=== PATIENT | female | born 1935 | race Hispanic/Latino ===

== ENCOUNTER 2021-01-15 11:05 | Emergency (ER) | payer OTHER ==
[2021-01-15] MEDS ORDERED: NA CHLORIDE 0.9% 500 ML ONE (15:20)
[2021-01-15 15:24] LABS: Absolute Lymphocytes (CBC) 1.6 K/uL (0.7-4.9); Basophils % 0.4 % (0-1.3); Hematocrit 38.8 % (36.0-45.0); Lymphocytes % 20.4 % (15.3-44.8); MPV 7.5 fL (7.6-11.3)
--- NOTE | 2021-01-15 16:01 | RAD REPORT ---
EXAM DESCRIPTION: Janeth Single View01/15/2021 3:28 pm CLINICAL HISTORY: Cough COMPARISON: none FINDINGS: Mild patchy opacities are present within the right lung. Left lung appears clear of acute infiltrate. The heart is normal size IMPRESSION: Mild patchy opacities within the right lung probably pneumonia
[2021-01-15 16:36] LABS: Urine Blood 2+ (Negative); Urine Glucose Negative (Negative); Urine Protein Negative (Negative); Urine pH 5.5 (5.0-7.0)
[2021-01-15] MEDS ORDERED: AZITHROMYCIN 250 MG TAB ONE (16:45)
[2021-01-15] MEDS ORDERED: NITROFURAN MACRO 100 MG CAP PO ONE (17:03)
[2021-01-15 17:54] LABS: Urine Bacteria LOADED /HPF (<20); Urine RBC <5 /HPF (NONE SEEN)
[2021-01-15 18:47] LABS: Potassium 2.9 mmol/L (3.5-5.1)
--- NOTE | 2021-01-15 18:51 | ER ---
Nurse's Notes [facility] Name: Thi Grimes Age: 85 yrs Sex: Female : 1935 Arrival Date: 01/15/2021 Time: 11:06 Bed 15 Private MD: Diagnosis: Pneumonia, unspecified organism;Coronavirus infection, unspecified;UTI/ Urinary tract infection, site not specified;Hypokalemia Presentation: 01/15 11:26 Chief complaint: Malaise, cough, congestion, sore throat, fever, and mild SOB x 2-3 hb days. TMAX 102. Sent by Dr. Ziegler for poss dehydration. Coronavirus screen: Client presents with at least one sign or symptom that may indicate coronavirus-19. Standard/surgical mask placed on the client. Provider contacted for isolation considerations. Ebola Screen: No symptoms or risks identified at this time. Risk Assessment: Do you want to hurt yourself or someone else? Patient reports no desire to harm self or others. Onset of symptoms was January 13, 2021. 11:26 Method Of Arrival: Ambulatory hb 11:26 Acuity: WEI 3 hb Historical: - Allergies: 11:28 PENICILLINS; hb 11:28 Codeine; hb 11:28 Aspirin; hb - Immunization history:: Adult Immunizations. - Social history:: Smoking status: . Screenin:43 Abuse screen: Denies threats or abuse. Nutritional screening: No deficits noted. tw2 Tuberculosis screening: No symptoms or risk factors identified. Fall Risk Secondary diagnosis (15 points) impaired mobility. Assessment: 14:50 Reassessment: provider at bedside at this time. tw2 15:07 General: Appears in no apparent distress. slender, well groomed, Behavior is calm, tw2 cooperative, appropriate for age. Pain: Denies pain. Neuro: Level of Consciousness is awake, alert, obeys commands, Oriented to person, place, time, situation. Cardiovascular: Patient's skin is warm and dry. Respiratory: Airway is patent Respiratory effort is even, unlabored, Respiratory pattern is regular, symmetrical. Respiratory: Reports shortness of breath at rest cough that is non-productive. GI: No signs and/or symptoms were reported involving the gastrointestinal system. Abdomen is flat. : No signs and/or symptoms were reported regarding the genitourinary system. EENT: Reports nasal congestion nasal discharge. Derm: No signs and/or symptoms reported regarding the dermatologic system. Musculoskeletal: Range of motion: intact in all extremities. 16:38 Reassessment: Patient appears in no apparent distress at this time. No changes from tw2 previously documented assessment. Patient and/or family updated on plan of care and expected duration. Pain level reassessed. Patient is alert, oriented x 3, equal unlabored respirations, skin warm/dry/pink. 17:34 Reassessment: Patient appears in no apparent distress at this time. No changes from tw2 previously documented assessment. Patient and/or family updated on plan of care and expected duration. Pain level reassessed. Patient is alert, oriented x 3, equal unlabored respirations, skin warm/dry/pink. 19:00 Reassessment: Patient appears in no apparent distress at this time. No changes from tw2 previously documented assessment. Patient and/or family updated on plan of care and expected duration. Pain level reassessed. Patient is alert, oriented x 3, equal unlabored respirations, skin warm/dry/pink. Vital Signs: 11:26 BP 125 / 57; Pulse 110; Resp 16; Temp 98.9(TE); Pulse Ox 96% on R/A; Pain 3/10; hb 15:25 BP 125 / 61; Pulse 91; Resp 17; Pulse Ox 98% on R/A; tw2 16:37 BP 136 / 72; Pulse 90; Resp 17; Pulse Ox 97% on R/A; tw2 17:34 BP 128 / 64; Pulse 89; Resp 17; Pulse Ox 97% on R/A; tw2 19:00 BP 122 / 69; Pulse 89; Resp 18; Pulse Ox 96% on R/A; tw2 ED Course: 11:06 Patient arrived in ED. rg4 11:28 Triage completed. hb 11:28 Arm band placed on. hb 14:28 Bed in low position. Call light in reach. Adult w/ patient. contact lens cutter on. Pulse tw2 ox on. NIBP on. 14:29 Blanca Yarbrough, RN is Primary Nurse. ap3 14:35 Ramona Cox, ALEKSANDR is Primary Nurse. tw2 14:49 Michelle Kohli FNP-C is [facility]. kb 14:49 Wei Kulkarni MD is Attending Physician. kb 15:07 Inserted saline lock: 20 gauge in right antecubital area, using aseptic technique. tw2 Blood collected. 15:14 Flu Sent. tw2 15:27 Chest Single View XRAY In Process Unspecified. EDMS 16:37 Urine Microscopic Only Sent. tw2 17:33 Awaiting lab results. tw2 18:47 Notified Nurse Practitioner and/or Physician Office Rental Clerk of a critical lab result(s), K tw2 2.9. 19:12 No provider procedures requiring assistance completed. IV discontinued, intact, tw2 bleeding controlled, No redness/swelling at site. Pressure dressing applied. Administered Medications: 15:07 Drug: NS 0.9% 500 ml Route: IV; Rate: bolus; Site: right antecubital; tw2 16:00 Follow up: Response: No adverse reaction; IV Status: Completed infusion; IV Intake: tw2 500ml 16:37 Drug: Zithromax (azithromycin) 500 mg Route: PO; tw2 18:50 Follow up: Response: No adverse reaction tw2 16:44 Drug: Macrobid (nitrofurantoin) 100 mg {Note: with sandwich.} Route: PO; tw2 18:50 Follow up: Response: No adverse reaction tw2 19:00 Drug: Potassium Effervescent Tablet 50 mEq Route: PO; tw2 19:08 Follow up: Response: No adverse reaction tw2 Intake: 16:00 IV: 500ml; Total: 500ml. tw2 Outcome: 18:50 Discharge ordered by . kb 19:12 Discharged to home ambulatory, with family. tw2 19:12 Condition: stable 19:12 Discharge instructions given to patient, family, Instructed on discharge instructions, follow up and referral plans. medication usage, Demonstrated understanding of instructions, follow-up care, medications, Prescriptions given X 2. 19:13 Patient left the ED. tw2 Signatures: Dispatcher [employer] EDMichelle Mckinney, OLIVER FELDMAN-Rachael Hathaway RN RN Ramona Cox RN RN tw2 Terri Lepe4 Blanca Yarbrough RN RN ap3 Corrections: (The following items were deleted from the chart) 11:28 11:28 Allergies: No Known Allergies; hb hb 14:44 14:32 BP 112 / 70; Pulse 68bpm; Resp 18bpm; Pulse Ox 99% RA; ap3 ap3 14:44 14:33 General: Appears in no apparent distress. comfortable, Behavior is talkative. ap3 ap3 : 14:33 Pain: Denies pain. ap3 ap3 : 14:33 Neuro: Level of Consciousness is awake, alert, obeys commands, Oriented to ap3 person, place, time, situation, Deckhand are Moves all extremities. Gait is steady, Speech is normal, ap3 : 14:33 Cardiovascular: Denies chest pain, Capillary refill < 3 seconds Patient's skin is ap3 warm and dry. ap3 : 14:33 Respiratory: Airway is patent Respiratory effort is even, unlabored, Respiratory ap3 pattern is regular, symmetrical, ap3 : 14:33 GI: No signs and/or symptoms were reported involving the gastrointestinal system. ap3 ap3 : 14:33 : ap3 ap3 14:33 : ap3 ap3
--- NOTE | 2021-01-15 18:51 | EDPHYS ---
Physician Documentation [facility] Name: Thi Grimes Age: 85 yrs Sex: Female : 1935 Arrival Date: 01/15/2021 Time: 11:06 Bed 15 Private MD: ED Physician Wei Kulkarni HPI: 01/16 00:22 This 85 yrs old Female presents to ER via Ambulatory with complaints of kb Palpitations, Dehydration. 01/15 18:46 Daughter reports patient went to PCP today for cough, congestion, fever, decreased kb appetite and fatigue for 3 days. PCP sent patient to ER for concerns of dehydration due to elevated heart rate.. 01/16 00:22 The patient or guardian reports cough, that is intermittent, described as moderate, kb with no sputum, flu symptoms, low-grade fever, myalgias, no appetite. Onset: The symptoms/episode began/occurred 3 day(s) ago. Severity of symptoms: At their worst the symptoms were moderate, in the emergency department the symptoms are unchanged. Modifying factors: The symptoms are alleviated by nothing, the symptoms are aggravated by nothing. Associated signs and symptoms: Pertinent positives: fever, rhinorrhea, Pertinent negatives: chest pain, diarrhea, ear ache. The patient has not experienced similar symptoms in the past. The patient has been recently seen by a physician:. Historical: - Allergies: 01/15 11:28 PENICILLINS; hb 11:28 Codeine; hb 11:28 Aspirin; hb - Immunization history:: Adult Immunizations. - Social history:: Smoking status: . ROS: 01/16 00:23 Abdomen/GI: Negative for abdominal pain, nausea, vomiting, diarrhea, and constipation. kb Constitutional: Positive for body aches, chills, fatigue, fever, malaise. Respiratory: Positive for cough, Negative for dyspnea on exertion, hemoptysis, orthopnea, pleurisy, shortness of breath, sputum production, wheezing. All other systems are negative. Exam: 00:24 Constitutional: This is a well developed, well nourished patient who is awake, alert, kb and in no acute distress. Head/Face: Normocephalic, atraumatic. ENT: Moist Mucous membranes Cardiovascular: Regular rate and rhythm with a normal S1 and S2. No gallops, murmurs, or rubs. No pulse deficits. Respiratory: Respirations even and unlabored. No increased work of breathing, no retractions or nasal flaring. Abdomen/GI: Soft, non-tender. No distention Skin: Warm, dry with normal turgor. Normal color. MS/ Extremity: Pulses equal, no cyanosis. Neurovascular intact. Full, normal range of motion. Neuro: Awake and alert, GCS 15, oriented to person, place, time, and situation. Moves all extremities. Normal gait. Psych: Awake, alert, with orientation to person, place and time. Behavior, mood, and affect are within normal limits. Vital Signs: 01/15 11:26 BP 125 / 57; Pulse 110; Resp 16; Temp 98.9(TE); Pulse Ox 96% on R/A; Pain 3/10; hb 15:25 BP 125 / 61; Pulse 91; Resp 17; Pulse Ox 98% on R/A; tw2 16:37 BP 136 / 72; Pulse 90; Resp 17; Pulse Ox 97% on R/A; tw2 17:34 BP 128 / 64; Pulse 89; Resp 17; Pulse Ox 97% on R/A; tw2 19:00 BP 122 / 69; Pulse 89; Resp 18; Pulse Ox 96% on R/A; tw2 MDM: 14:49 Patient medically screened. 01/16 00:23 Data reviewed: vital signs, nurses notes. Data interpreted: Pulse oximetry: on room air kb is 96 %. Interpretation: normal. Counseling: I had a detailed discussion with the patient and/or guardian regarding: the historical points, exam findings, and any diagnostic results supporting the discharge/admit diagnosis, lab results, radiology results, the need for outpatient follow up, a family practitioner, to return to the emergency department if symptoms worsen or persist or if there are any questions or concerns that arise at home. 01/15 14:49 Order name: COVID-19 : Document "Date of Symptom Onset" if Symptomatic. 01/15 14:49 Order name: Flu kb 01/15 14:50 Order name: Influenza Screen (A ; Complete Time: 15:52 EDMS 01/15 14:55 Order name: CBC with Diff; Complete Time: 15:31 kb 01/15 14:55 Order name: Basic Metabolic Panel; Complete Time: 18:48 kb 01/15 16:09 Order name: Blood Culture Adult (2) 01/15 16:09 Order name: Lactate 01/15 16:09 Order name: Procalcitonin 01/15 16:10 Order name: Blood Culture EDNY 01/15 16:18 Order name: SARS-COV-2 RT PCR; Complete Time: 16:20 EDNY 01/15 16:35 Order name: Urine Microscopic Only; Complete Time: 17:54 ss 01/15 14:55 Order name: Urine Dipstick-Ancillary (obtain specimen); Complete Time: 16:36 01/15 14:55 Order name: IV Start; Complete Time: 15:14 01/15 14:55 Order name: Chest Single View XRAY; Complete Time: 16:08 01/15 16:35 Order name: Urine Dipstick-Ancillary; Complete Time: 16:41 EDMS 01/15 17:55 Order name: Urine Culture EDMS Administered Medications: 01/15 15:07 Drug: NS 0.9% 500 ml Route: IV; Rate: bolus; Site: right antecubital; tw2 16:00 Follow up: Response: No adverse reaction; IV Status: Completed infusion; IV Intake: tw2 500ml 16:37 Drug: Zithromax (azithromycin) 500 mg Route: PO; tw2 18:50 Follow up: Response: No adverse reaction tw2 16:44 Drug: Macrobid (nitrofurantoin) 100 mg {Note: with sandwich.} Route: PO; tw2 18:50 Follow up: Response: No adverse reaction tw2 19:00 Drug: Potassium Effervescent Tablet 50 mEq Route: PO; tw2 19:08 Follow up: Response: No adverse reaction tw2 Disposition: 01/16 09:14 Co-signature as Attending Physician, Wei Kulkarni MD I agree with the assessment and anaya plan of care. Disposition Summary: 01/15/21 18:50 Discharge Ordered Location: Home kb Condition: Stable kb Diagnosis - Pneumonia, unspecified organism kb - Coronavirus infection, unspecified kb - UTI/ Urinary tract infection, site not specified kb - Hypokalemia kb Followup: kb - With: Emergency Department - When: As needed - Reason: Worsening of condition Followup: kb - With: Private Physician - When: 2 - 3 days - Reason: Recheck today's complaints, Continuance of care, Re-evaluation by your physician Discharge Instructions: - Discharge Summary Sheet kb - Urinary Tract Infection, Adult, [id number] kb - Hypokalemia kb - COVID-19 kb Forms: - Medication Reconciliation Form kb - Thank You Letter kb - Antibiotic Education kb - Prescription Opioid Use kb Prescriptions: - Macrobid 100 mg Oral Capsule - take 1 capsule by ORAL route every 12 hours for 10 days; 20 capsule; Refills: kb 0, Product Selection Permitted - Zithromax 500 mg Oral Tablet - take 1 tablet by ORAL route once daily for 5 days; 5 tablet; Refills: 0, kb Product Selection Permitted Signatures: Dispatcher [employer] EDMS Michlele Kohli, DOG HANDLER OR TRAINER-C FRANCIA-Wei Camarillo MD MD cha Baxter, Heather, RN RN Ramona Cox RN RN tw2 Corrections: (The following items were deleted from the chart) 01/15 11:28 11:28 Allergies: No Known Allergies; hb hb 15:31 14:50 CORONAVIRUS ordered. EDMS EDMS 16:20 16:10 Lactate ordered. EDMS EDMS 16:21 16:10 Procalcitonin ordered. EDMS EDMS
[2021-01-15] MEDS ORDERED: POTASSIUM 25 MEQ EFFERV TAB ONE (19:15)
[2021-01-15 19:17] VITALS: TEMP 98.9
[2021-01-15 19:23] VITALS: BP 122/69; O2SAT 96
== END 2021-01-15 19:13 | disposition home or self-care (01) ==
LOC: ER 11:05
DX: U07.1 COVID-19 (principal); J18.9 Pneumonia, unspecified organism; N39.0 Urinary tract infection, site not specified; E87.6 Hypokalemia; Z88.0 Allergy status to penicillin; Z88.5 Allergy status to narcotic agent; Z88.6 Allergy status to analgesic agent
CPT/HCPCS: 87040 ×2; 87088; 85025; 87086; 80048; 36415; 87804 ×2; 71045; 96360; 99284; U0003; J7040; 81003; 81015; 87077; 87186

== ENCOUNTER 2025-03-31 23:24 | Inpatient (IN) | payer OTHER ==
[2025-03-31] MEDS ORDERED: ONDANSETRON 4 MG/2 ML VIAL ONE (23:58)
[2025-03-31] MEDS ORDERED: NA CHLORIDE 0.9% 1,000 ML ONE (23:58)
[2025-03-31] MEDS ORDERED: MORPHINE 2 MG/ML SYR ONE (23:58)
[2025-03-31] MEDS ORDERED: NA CHLORIDE 0.9% 500 ML ONE (23:58)
[2025-04-01 00:01] LABS: Absolute Lymphocytes (CBC) 2.8 K/uL (0.7-4.9); Hematocrit 36.2 % (36.0-45.0); Hemoglobin 11.8 g/dL (12.0-15.0); MCH 29.2 pg (27.0-35.0); MCHC 32.6 g/dL (32.0-36.0); MCV 89.4 fL (80-100); MPV 7.6 fL (7.6-11.3); Nucleated RBC Absolute Count 0.0 (0-0); Nucleated Red Blood Cells % 0.0 % (0-0); RBC Red Blood Cell Count 4.05 M/uL (3.86-4.86); White Blood Count 16.20 thou/uL (4.3-10.9)
[2025-04-01 00:07] LABS: PT Prothrombin Time 13.8 SECONDS (10-13.0); Protime INR 1.23
[2025-04-01 00:25] LABS: ALT/SGPT 15 U/L (13-56); AST/SGOT 13 U/L (15-37); Albumin 2.8 g/dL (3.4-5.0); Albumin/Globulin Ratio 0.8 (1.1-1.8); Alkaline Phosphatase 71 U/L (45-117); Anion Gap 8.7 mEq/L (5.0-15.0); BUN Blood Urea Nitrogen 10 mg/dL (7-18); Globulin 3.6 g/dL (2.3-3.5); Glucose Level 145 mg/dL (74-106); Lipase 26 U/L (13-75); Magnesium 2.3 mg/dL (1.6-2.4); NT PRO-BNP 274 pg/mL (<450); Potassium 2.7 mEq/L (3.5-5.1); Troponin High Sensitivity 6.2 pg/mL (<58.9)
[2025-04-01] MEDS ORDERED: METOCLOPRAMIDE 10 MG/2mL INJ ONE (00:28)
[2025-04-01 00:30] LABS: Bilirubin Indirect, Calculated 0.3 mg/dL (0.2-0.8)
[2025-04-01] MEDS ORDERED: MORPHINE 2 MG/ML SYR ONE (00:34)
--- NOTE | 2025-04-01 02:05 | RAD REPORT ---
EXAM: CT Chest, Abdomen and Pelvis With Intravenous Contrast CLINICAL HISTORY: The patient is 89 years old and is Female; abd pain TECHNIQUE: Axial computed tomography images of the chest, abdomen and pelvis with intravenous contrast. Sagi ttal and coronal reformatted images were created and reviewed. This CT exam was performed using one or more of the following dose reduction techniques: automated exposure control, adjustment of t he mA and/or kV according to patient size, and/or use of iterative reconstruction technique. COMPARISON: No relevant prior studies available. FINDINGS: CHEST: LUNGS AND PLEURAL SPACES: Foci of atelectasis/scarring within the right upper lobe and bilateral lower lobes is noted. There is no lobar consolidation. There is no effusion or pneumothorax. HEART: No cardiomegaly. No pericardial effusion. MEDIASTINUM: Extensive esophageal wall thickening/edema is present. ABDOMEN: LIVER: Intrahepatic and extrahepatic biliary dilatation is present. The liver is otherwise homo geneous. GALLBLADDER AND BILE DUCTS: Surgical clips are present in the right upper quadrant, consistent wi th previous cholecystectomy. PANCREAS: No ductal dilation. No mass. SPLEEN: Unremarkable. ADRENALS: Unremarkable. No mass. KIDNEYS AND URETERS: Unremarkable. The kidneys enhance symmetrically. No obstructing renal or ure teral calculus is seen. No hydronephrosis or hydroureter. No perinephric fluid or stranding. STOMACH AND BOWEL: The stomach is distended with food contents and air. The small bowel is normal in caliber. A moderate amount of stool is present throughout the colon. Scattered colonic diverticula are noted without surrounding inflammation. There is no evidence of obstruction. PELVIS: APPENDIX: No findings to suggest acute appendicitis. BLADDER: Bladder wall thickening and enhancement is noted. The bladder is moderately distended. REPRODUCTIVE: Unremarkable as visualized. CHEST, ABDOMEN and PELVIS: INTRAPERITONEAL SPACE: Unremarkable. No significant fluid collection. No free air. BONES/JOINTS: The bones are osteopenic. Minimal degenerative change specifically at L5-S1 with en dplate sclerosis and intervertebral disc space narrowing is noted. There is no acute fracture. SOFT TISSUES: The soft tissues are normal. VASCULATURE: Atherosclerosis of the vasculature is present. The vessels are normal in caliber. No aortic aneurysm. LYMPH NODES: Unremarkable. No enlarged lymph nodes. IMPRESSION: 1. Extensive esophageal wall thickening concerning for esophagitis. A discrete mass is not seen. Ho wejeanine, consider direct visualization. 2. Colonic diverticulosis. 3. Mild enhancement and thickening of the bladder wall which may be secondary to cystitis. 4. Biliary dilatation. This may be related to postcholecystectomy state. However, if clinically ind icated, ultrasound and/or MRCP could be performed for further evaluation. Electronically signed by: Rochelle Osorio MD 04/01/2025 01:25 AM CDT RP Due to temporary technical issues with the PACS/[employer] reporting system, reports are being herson d by the in-house radiologist without review as a courtesy to ensure prompt reporting the interpreting radiologist is fully responsible for the content of the report. Transcribed Date/Time: 04/01/2025 2:05 AM
[2025-04-01] MEDS ORDERED: CEFTRIAXONE 1000 MG/VIAL ONE (03:12)
[2025-04-01] MEDS ORDERED: KCL 20 MEQ/100 mL IVPB 100 ML IV ONE (03:13)
[2025-04-01] MEDS ORDERED: PANTOPRAZOLE 40 MG INJ ONE ×2 (03:13→09:07)
[2025-04-01] MEDS ORDERED: NA CHLORIDE 0.9% 0 ML ONE ×2 (03:13)
--- NOTE | 2025-04-01 06:07 | ER ---
Nurse's Notes [facility] Name: Thi Grimes Age: 89 yrs Sex: Female : 1935 Arrival Date: 03/31/2025 Time: 23:24 Bed 5 Private MD: Diagnosis: Intractable vomiting, acute moderate to severe esophagitis;Acute hypokalemia secondary to GI losses Presentation: 03/31 23:43 Chief complaint: Patient states: CP/Burning, N/V and SOB X2 days. Coronavirus screen: lg3 Client denies travel out of the [place] in the last 14 days. At this time, the client does not indicate any symptoms associated with coronavirus-19. Ebola Screen: No symptoms or risks identified at this time. Initial Sepsis Screen: Does the patient meet any 2 criteria? No. Patient's initial sepsis screen is negative. Does the patient have a suspected source of infection? No. Patient's initial sepsis screen is negative. Risk Assessment: Do you want to hurt yourself or someone else? Patient reports no desire to harm self or others. Onset of symptoms was March 29, 2025. 23:43 Method Of Arrival: Wheelchair lg3 23:43 Acuity: WEI 3 lg3 Triage Assessment: 23:45 General: Appears in no apparent distress. uncomfortable, Behavior is calm, cooperative. lg3 Pain: Complains of pain in chest Quality of pain is described as burning. EENT: No deficits noted. No signs and/or symptoms were reported regarding the EENT system. Neuro: No deficits noted. Mitchell Agitation-Sedation Scale (RASS): 0 - Alert and Calm Level of Consciousness is awake, alert, obeys commands, Oriented to person, place, time, situation. Cardiovascular: Reports chest pain, shortness of breath, Capillary refill < 3 seconds Clubbing of nail beds is absent JVD is absent Patient's skin is warm and dry. Respiratory: No deficits noted. Reports shortness of breath on exertion Onset: The symptoms/episode began/occurred 3 days ago, the patient has mild shortness of breath. GI: Abdomen is flat, non-distended, Reports nausea, vomiting. : No signs and/or symptoms were reported regarding the genitourinary system. Derm: No deficits noted. No signs and/or symptoms reported regarding the dermatologic system. Skin is intact, is thin, Skin is dry, Skin is normal, Skin temperature is warm. Musculoskeletal: No deficits noted. No signs and/or symptoms reported regarding the musculoskeletal system. Circulation, motion, and sensation intact. Range of motion: intact in all extremities. Historical: - PSHx: 04/01 07:15 Cholecystectomy; mb9 - Immunization history:: Adult Immunizations up to date. - Infectious Disease History:: Denies. - Social history:: Smoking status: Patient denies any tobacco usage or history of. Patient/guardian denies using alcohol, street drugs. Screenin/05 23:49 [facility] ED Fall Risk Assessment (Adult) History of falling in the last 3 months, lg3 including since admission No falls in past 3 months (0 pts) Confusion or Disorientation No (0 pts) Intoxicated or Sedated No (0 pts) Impaired Gait No (0 pts) Mobility Assist Device Used Yes (1 pt) Altered Elimination No (0 pt) Score/Fall Risk Level 0 - 2 = Low Risk Oriented to surroundings, Maintained a safe environment, Educated pt \T\ family on fall prevention, incl call for assistance when getting out of bed, Assessed \T\ reinforced patient's understanding of fall precautions. Abuse screen: Denies threats or abuse. Denies injuries from another. Nutritional screening: No deficits noted. Tuberculosis screening: No symptoms or risk factors identified. Assessment: 23:45 General: Appears uncomfortable, Behavior is calm, cooperative. Pain: Complains of pain ha1 in chest Pain currently is 8 out of 10 on a pain scale. Quality of pain is described as heavy, pressure. Neuro: Level of Consciousness is awake, alert, obeys commands, Oriented to person, place, time, situation. Cardiovascular: Reports chest pain, Heart tones S1 S2 present Capillary refill < 3 seconds Patient's skin is warm and dry. Rhythm is regular. Respiratory: Airway is patent Respiratory effort is even, unlabored, Respiratory pattern is regular, symmetrical. GI: Abdomen is round non-distended, Bowel sounds present X 4 quads. Reports epigastric pain, nausea, vomiting. : No signs and/or symptoms were reported regarding the genitourinary system. Derm: Skin is pink, warm \T\ dry. Musculoskeletal: Circulation, motion, and sensation intact. Range of motion: intact in all extremities. 04/01 00:45 Reassessment: Patient and/or family updated on plan of care and expected duration. Pain ha1 level reassessed. Patient is alert, oriented x 3, equal unlabored respirations, skin warm/dry/pink. Patient states symptoms have not improved. 01:34 General: Appears in no apparent distress. Behavior is calm, cooperative. Neuro: Level kd3 of Consciousness is awake, alert, obeys commands, Oriented to person, place, time, situation. Cardiovascular: Rhythm is sinus rhythm. Respiratory: Airway is patent Trachea midline Respiratory effort is even, unlabored, Respiratory pattern is regular, symmetrical, Breath sounds are clear in right upper lobe and left upper lobe. 02:30 Reassessment: Patient and/or family updated on plan of care and expected duration. Pain ha1 level reassessed. Patient is alert, oriented x 3, equal unlabored respirations, skin warm/dry/pink. PAIN 2/10 Patient states feeling better. Patient states symptoms have improved. 03:25 Reassessment: Patient and/or family updated on plan of care and expected duration. Pain ha1 level reassessed. Patient is alert, oriented x 3, equal unlabored respirations, skin warm/dry/pink. Patient states feeling better. Patient states symptoms have improved. 04:00 Reassessment: Patient and/or family updated on plan of care and expected duration. Pain ha1 level reassessed. 05:20 Reassessment: EYES CLOSED. Respiratory: Airway is patent Respiratory effort is even, ha1 unlabored, Respiratory pattern is regular, symmetrical. 06:20 Reassessment: EYES CLOSED. Respiratory: Airway is patent Respiratory effort is even, ha1 unlabored, Respiratory pattern is regular, symmetrical. 07:15 Reassessment: Patient appears in no apparent distress at this time. Patient is alert, mb9 oriented x 3, equal unlabored respirations, skin warm/dry/pink. Patient denies pain at this time. 08:30 Reassessment: See [facility] for further charting. mb9 Vital Signs: 03/31 23:43 BP 121 / 64; Pulse 84; Resp 16 S; Temp 98.3(O); Pulse Ox 94% on R/A; Weight 43.54 kg lg3 (M); Height 5 ft. 1 in. (R); 04/01 00:30 BP 108 / 59; Pulse 81; Resp 18 S; Pulse Ox 97% on R/A; ha1 01:34 BP 149 / 69; Pulse 78; Resp 16; Pulse Ox 98% on R/A; kd3 02:30 BP 127 / 64; Pulse 75; Resp 18 S; Pulse Ox 95% on R/A; ha1 03:18 BP 108 / 57; Pulse 77; Resp 19; Pulse Ox 99% on R/A; kd3 04:57 BP 122 / 66; Pulse 74; Resp 16; Pulse Ox 94% on R/A; kd3 05:20 BP 125 / 69; Pulse 77; Resp 16 S; Pulse Ox 96% on R/A; ha1 06:10 BP 102 / 58; Pulse 80; Resp 17 S; Pulse Ox 96% on R/A; ha1 08:08 BP 109 / 64; Pulse 74; Resp 18; Pulse Ox 100% on R/A; mb9 09:00 BP 100 / 61; Pulse 70; Resp 12; Pulse Ox 94% ; jp5 10:00 BP 107 / 59; Pulse 68; Resp 12; Pulse Ox 94% ; jp5 03/31 23:43 Body Mass Index 18.14 (43.54 kg, 154.94 cm) lg3 Mary Anne Coma Score: 06:03 Eye Response: spontaneous(4). Motor Response: obeys commands(6). Verbal Response: sp4 oriented(5). Total: 15. ED Course: 03/31 23:29 Patient arrived in ED. gm2 23:34 Srikanth Woodson MD is Attending Physician. sp4 23:45 Triage completed. lg3 23:45 Arm band placed on right wrist. lg3 23:49 Patient has correct armband on for positive identification. Placed in gown. Bed in low lg3 position. Call light in reach. Side rails up X2. Client placed on continuous cardiac and pulse oximetry monitoring. NIBP monitoring applied. security monitor on. Door closed. Noise minimized. Warm blanket given. Pillow given. Family accompanied patient. 23:49 EKG done, by ED staff, reviewed by Srikanth Woodson MD. lg3 04/01 00:12 Basic Metabolic Panel Sent. ha1 00:13 LFT's Sent. ha1 00:13 Magnesium Sent. ha1 00:13 NT PRO-BNP Sent. ha1 00:13 Troponin HS Sent. ha1 00:37 Page, Rita, ALEKSANDR is Primary Nurse. ha1 01:09 CT Chest, Abdomen, Pelvis - W/Contrast In Process Unspecified. EDMS 01:19 US Abdomen Limited In Process Unspecified. EDMS 03:32 First set of blood cultures drawn by me, Second set of blood cultures drawn by me. kd3 03:40 Blood Culture Adult (2) Sent. kd3 06:06 Carolina Mireles MD is Hospitalizing Provider. sp4 09:00 Patient admitted, IV remains in place. mb9 11:09 No provider procedures requiring assistance completed. mb9 Administered Medications: 00:11 Drug: morphine IVP or IV 2 mg IVP once over 4 mins Route: IVP; Infused Over: 4 mins; ha1 Site: right antecubital; 01:00 Follow up: Response: No adverse reaction; Marked relief of symptoms; Pain is decreased ha1 00:12 Drug: Ondansetron IVP 4 mg IVP once; over 2 minutes Route: IVP; Site: right antecubital;ha1 01:00 Follow up: Response: No adverse reaction; Nausea is decreased ha1 00:12 Drug: NS 0.9% IV 500 ml 500 ml IV at 1 bolus once; to be given as a bolus over 30 ha1 minutes Volume: 500 ml; Route: IV; Rate: 1 bolus; Site: right antecubital; 00:12 Drug: NS 0.9% IV 1000 ml IV at 125 ml/hr once; to be given as a bolus over 60 minutes ha1 Route: IV; Rate: 125 ml/hr; Site: right antecubital; 00:33 Drug: metoCLOPramide IVP 10 mg IVP once; over 1 to 2 minutes Route: IVP; Site: right ha1 antecubital; 01:00 Follow up: Response: No adverse reaction; Marked relief of symptoms ha1 00:35 Drug: morphine IVP or IV 2 mg IVP once over 4 mins Route: IVP; Infused Over: 4 mins; ha1 Site: right antecubital; 01:00 Follow up: Response: No adverse reaction; Pain is decreased; RASS: Alert and Calm (0) ha1 03:40 Drug: Pantoprazole IVP 80 mg IVP once Route: IVP; Site: right antecubital; kd3 04:00 Follow up: Response: No adverse reaction; Marked relief of symptoms ha1 03:41 Drug: Rocephin - Rocephin (cefTRIAXone) IVPB 1 grams IVPB once over 30 mins; (mix in 50 kd3 mL NS) Route: IVPB; Infused Over: 30 mins; Site: right antecubital; 03:41 Drug: Potassium Chloride IV 20 mEq IV at calculated rate once; administer over 1-2 kd3 hours Route: IV; Rate: calculated rate; Site: right antecubital; 06:33 Follow up: Response: No adverse reaction; IV Status: Completed infusion ha1 Medication: 03/31 23:49 VIS not applicable for this client. 3 Outcome: 04/01 06:06 Decision to Hospitalize by Provider. [email or web address] 11:09 Admitted to Med/surg accompanied by nurse, accompanied by debbie, via richy gore 11:09 Condition: stable 11:09 Instructed on the need for admit, 11:10 Patient left the ED. mb9 Signatures: Dispatcher [employer] EDMS Pallavi Griffin RN RN 3 Lucia Mckeon RN RN kd3 Rita Page RN RN ha1 Lori Jane RN RN mb9 Srikanth Woodson MD MD sp4 Hortensia Flower gm2 Bernadette Melendez RN RN jp5 Corrections: (The following items were deleted from the chart) 07:15 03/31 23:45 Allergies: Aspirin; [place] [address] 04/01 07:03/31 23:45 Allergies: Codeine; [place] [address] 04/01 07:03/31 23:45 Allergies: PENICILLINS; [place] [address] 04/01 07:03/31 23:45 Home Meds: esomeprazole magnesium oral; [place] [address] 04/01 07:03/31 23:45 Home Meds: alendronate oral; [place] [address] 04/01 07:03/31 23:45 Home Meds: Oxybutynin Chloride Oral; [place] [address] 04/01 07:03/31 23:45 Home Meds: Trazodone Oral; [place] [address] 04/01 07:03/31 23:45 Home Meds: Lovastatin Oral; [place] [address] 04/01 07:03/31 23:45 PMHx: Osteoporosis; lg3 mb9 04/01 07:15 03/31 23:45 PSHx: None; lg3 mb9
--- NOTE | 2025-04-01 06:07 | EDPHYS ---
Physician Documentation [facility] Name: Thi Grimes Age: 89 yrs Sex: Female : 1935 Arrival Date: 03/31/2025 Time: 23:24 Bed 5 Private MD: ED Physician Srikanth Woodson HPI: 03/31 23:34 This 89 yrs old Female presents to ER via Unassigned with complaints of sp4 Shortness Of Breath, Nausea/Vomiting, Abdominal Pain. 04/01 04:07 89-year-old female with history of prior esophageal stricture presents with moderate to sp4 severe nausea vomiting and epigastric abdominal pain. Historical: - PSHx: 07:15 Cholecystectomy; mb9 - Immunization history:: Adult Immunizations up to date. - Infectious Disease History:: Denies. - Social history:: Smoking status: Patient denies any tobacco usage or history of. Patient/guardian denies using alcohol, street drugs. ROS: 04:12 Constitutional: Negative for fever, chills, and weight loss, positive epigastric pain, sp4 positive nausea vomiting, positive shortness of breath. 04:12 All other systems are negative, Exam: 06:03 Constitutional: This is a well developed, well nourished patient who is awake, alert, sp4 and in no acute distress. Head/Face: Normocephalic, atraumatic. Eyes: Pupils equal round and reactive to light, extra-ocular motions intact. Lids and lashes normal. Conjunctiva and sclera are not injected. Cornea within normal limits. Periorbital areas with no swelling, redness, or edema. ENT: Nares patent. No nasal discharge, no septal abnormalities noted. Tympanic membranes are normal and external auditory canals are clear. Oropharynx with no redness, swelling, or masses, exudates, or evidence of obstruction, uvula midline. Mucous membranes moist. Neck: Trachea midline, no thyromegaly or masses palpated, and no cervical lymphadenopathy. Supple, full range of motion without nuchal rigidity, or vertebral point tenderness. Chest/axilla: Normal chest wall appearance and motion. Nontender with no deformity. No lesions are appreciated. Cardiovascular: Regular rate and rhythm with a normal S1 and S2. No gallops, murmurs, or rubs. No pulse deficits. Respiratory: Lungs have equal breath sounds bilaterally, clear to auscultation and percussion. No rales, rhonchi or wheezes noted. No increased work of breathing, no retractions or nasal flaring. Abdomen/GI: Soft, with normal bowel sounds. No distension or tympany. No guarding or rebound. No evidence of tenderness throughout. Back: No spinal tenderness. No costovertebral tenderness. Skin: Warm, dry with normal turgor. Normal color with no rashes, no lesions, and no evidence of cellulitis. MS/ Extremity: Pulses equal, no cyanosis. Neurovascular intact. Full, normal range of motion. Neuro: Awake and alert, GCS 15, oriented to person, place, time, and situation. Cranial nerves II-XII grossly intact. Motor strength 5/5 in all extremities. Sensory grossly intact. Psych: Awake, alert, with orientation to person, place and time. Behavior, mood, and affect are within normal limits 06:03 ECG was reviewed by the Attending Physician. EKG 2342 normal sinus rhythm rate 84 Vital Signs: 03/31 23:43 BP 121 / 64; Pulse 84; Resp 16 S; Temp 98.3(O); Pulse Ox 94% on R/A; Weight 43.54 kg lg3 (M); Height 5 ft. 1 in. (R); 04/01 00:30 BP 108 / 59; Pulse 81; Resp 18 S; Pulse Ox 97% on R/A; ha1 01:34 BP 149 / 69; Pulse 78; Resp 16; Pulse Ox 98% on R/A; kd3 02:30 BP 127 / 64; Pulse 75; Resp 18 S; Pulse Ox 95% on R/A; ha1 03:18 BP 108 / 57; Pulse 77; Resp 19; Pulse Ox 99% on R/A; kd3 04:57 BP 122 / 66; Pulse 74; Resp 16; Pulse Ox 94% on R/A; kd3 05:20 BP 125 / 69; Pulse 77; Resp 16 S; Pulse Ox 96% on R/A; ha1 06:10 BP 102 / 58; Pulse 80; Resp 17 S; Pulse Ox 96% on R/A; ha1 08:08 BP 109 / 64; Pulse 74; Resp 18; Pulse Ox 100% on R/A; mb9 09:00 BP 100 / 61; Pulse 70; Resp 12; Pulse Ox 94% ; jp5 10:00 BP 107 / 59; Pulse 68; Resp 12; Pulse Ox 94% ; jp5 03/31 23:43 Body Mass Index 18.14 (43.54 kg, 154.94 cm) lg3 [place] Coma Score: 06:03 Eye Response: spontaneous(4). Motor Response: obeys commands(6). Verbal Response: sp4 oriented(5). Total: 15. MDM: 03/31 23:36 Medical Screening Exam initiated sp4 04/01 01:47 ED course: technique. COMPARISON: No relevant prior studies available. FINDINGS: CHEST: sp4 LUNGS AND PLEURAL SPACES: Foci of atelectasis/scarring within the right upper lobe and bilateral lower lobes is noted. There is no lobar consolidation. There is no effusion or pneumothorax. HEART: No cardiomegaly. No pericardial effusion. MEDIASTINUM: Extensive esophageal wall thickening/edema is present. ABDOMEN: LIVER: Intrahepatic and extrahepatic biliary dilatation is present. The liver is otherwise homogeneous. GALLBLADDER AND BILE DUCTS: Surgical clips are present in the right upper quadrant, consistent with previous cholecystectomy. PANCREAS: No ductal dilation. No mass. SPLEEN: Unremarkable. ADRENALS: Unremarkable. No mass. KIDNEYS AND URETERS: Unremarkable. The kidneys enhance symmetrically. No obstructing renal or ureteral calculus is seen. No hydronephrosis or hydroureter. No perinephric fluid or stranding. STOMACH AND BOWEL: The stomach is distended with food contents and air. The small bowel is normal in caliber. A moderate amount of stool is present throughout the colon. Scattered colonic diverticula are noted without surrounding inflammation. There is no evidence of obstruction. PELVIS: APPENDIX: No findings to suggest acute appendicitis. BLADDER: Bladder wall thickening and enhancement is noted. The bladder is moderately distended. REPRODUCTIVE: Unremarkable as visualized. CHEST, ABDOMEN and PELVIS: INTRAPERITONEAL SPACE: Unremarkable. No significant fluid collection. No free air. BONES/JOINTS: The bones are osteopenic. Minimal degenerative change specifically at L5-S1 with endplate sclerosis and intervertebral disc space narrowing is noted. There is no acute fracture. SOFT TISSUES: The soft tissues are normal. VASCULATURE: Atherosclerosis of the vasculature is present. The vessels are normal in caliber. No aortic aneurysm. LYMPH NODES: Unremarkable. No enlarged lymph nodes. IMPRESSION: 1. Extensive esophageal wall thickening concerning for esophagitis. A discrete mass is not seen. However, consider direct visualization. 2. Colonic diverticulosis. 3. Mild enhancement and thickening of the bladder wall which may be secondary to cystitis. 4. Biliary dilatation. This may be related to postcholecystectomy state. However, if clinically indicated, ultrasound and/or MRCP could be performed for further evaluation. Electronically signed by: Rochelle Osorio MD 04/01/2025 01:25 AM CDT R. 04:07 Differential diagnosis: Anxiety Reaction asthma, Bronchitis CHF exacerbation, Chronic sp4 Obstructive Pulmonary Disease pneumonia, pulmonary edema, Sepsis Unstable Angina. 04:08 Antibiotic administration: IV Rocephin was provided. sp4 06:05 Data reviewed: vital signs, nurses notes, lab test result(s), radiologic studies, CT sp4 scan. Consideration of Admission/Observation Escalation of care including admission/observation considered. 03/31 23:35 Order name: CT Chest, Abdomen, Pelvis - W/Contrast sp4 04/01 00:37 Order name: US Abdomen Limited sp4 03/31 23:35 Order name: Basic Metabolic Panel; Complete Time: 02:46 sp4 03/31 23:35 Order name: CBC with Diff; Complete Time: 02:46 sp4 03/31 23:35 Order name: LFT's; Complete Time: 02:46 sp4 03/31 23:35 Order name: Magnesium; Complete Time: 02:46 sp4 03/31 23:35 Order name: NT PRO-BNP; Complete Time: 02:46 sp4 03/31 23:35 Order name: PT-INR; Complete Time: 02:46 sp4 03/31 23:35 Order name: Troponin HS; Complete Time: 02:46 sp4 03/31 23:35 Order name: Lipase; Complete Time: 02:46 sp4 04/01 02:54 Order name: Blood Culture Adult (2) sp4 04/01 07:14 Order name: CBC with Automated Diff EDMS 04/01 07:14 Order name: CBC with Automated Diff EDMS 04/01 07:14 Order name: CBC with Automated Diff EDMS 04/01 07:14 Order name: CBC with Automated Diff EDMS 04/01 07:14 Order name: Comprehensive Metabolic Panel EDMS 04/01 07:14 Order name: Comprehensive Metabolic Panel EDMS 04/01 07:14 Order name: Comprehensive Metabolic Panel EDMS 04/01 07:14 Order name: Comprehensive Metabolic Panel EDMS 04/01 07:14 Order name: Magnesium EDMS 04/01 07:14 Order name: Magnesium EDMS 04/01 07:14 Order name: Magnesium EDMS 04/01 07:14 Order name: Magnesium EDMS 03/31 23:35 Order name: Cardiac monitoring; Complete Time: 23:50 sp4 03/31 23:35 Order name: EKG - Nurse/Tech; Complete Time: 23:50 sp4 03/31 23:35 Order name: IV Saline Lock; Complete Time: 00:12 sp4 03/31 23:35 Order name: Labs collected and sent; Complete Time: 00:12 sp4 03/31 23:35 Order name: O2 Per Protocol; Complete Time: 00:12 sp4 03/31 23:35 Order name: O2 Sat Monitoring; Complete Time: 00:12 sp4 04/01 04:12 Order name: NPO; Complete Time: 04:14 sp4 EC/05 23:42 Rate is 84 beats/min. Rhythm is regular, Normal Sinus Rhythm. QRS [place] is Normal. AL sp4 interval is normal. QRS interval is normal. QT interval is normal. No Q waves. T waves are Normal. No ST changes noted. Clinical impression: Normal ECG. Interpreted by me. Reviewed by me. Administered Medications: 04/01 00:11 Drug: morphine IVP or IV 2 mg IVP once over 4 mins Route: IVP; Infused Over: 4 mins; ha1 Site: right antecubital; 01:00 Follow up: Response: No adverse reaction; Marked relief of symptoms; Pain is decreased ha1 00:12 Drug: Ondansetron IVP 4 mg IVP once; over 2 minutes Route: IVP; Site: right antecubital;ha1 01:00 Follow up: Response: No adverse reaction; Nausea is decreased ha1 00:12 Drug: NS 0.9% IV 500 ml 500 ml IV at 1 bolus once; to be given as a bolus over 30 ha1 minutes Volume: 500 ml; Route: IV; Rate: 1 bolus; Site: right antecubital; 00:12 Drug: NS 0.9% IV 1000 ml IV at 125 ml/hr once; to be given as a bolus over 60 minutes ha1 Route: IV; Rate: 125 ml/hr; Site: right antecubital; 00:33 Drug: metoCLOPramide IVP 10 mg IVP once; over 1 to 2 minutes Route: IVP; Site: right ha1 antecubital; 01:00 Follow up: Response: No adverse reaction; Marked relief of symptoms ha1 00:35 Drug: morphine IVP or IV 2 mg IVP once over 4 mins Route: IVP; Infused Over: 4 mins; ha1 Site: right antecubital; 01:00 Follow up: Response: No adverse reaction; Pain is decreased; RASS: Alert and Calm (0) ha1 03:40 Drug: Pantoprazole IVP 80 mg IVP once Route: IVP; Site: right antecubital; kd3 04:00 Follow up: Response: No adverse reaction; Marked relief of symptoms ha1 03:41 Drug: Rocephin - Rocephin (cefTRIAXone) IVPB 1 grams IVPB once over 30 mins; (mix in 50 kd3 mL NS) Route: IVPB; Infused Over: 30 mins; Site: right antecubital; 03:41 Drug: Potassium Chloride IV 20 mEq IV at calculated rate once; administer over 1-2 kd3 hours Route: IV; Rate: calculated rate; Site: right antecubital; 06:33 Follow up: Response: No adverse reaction; IV Status: Completed infusion ha1 Disposition: 21:04 Chart complete. sp4 21:04 Critical Care:. sp4 Disposition Summary: 04/01/25 06:06 Hospitalization Ordered Notes: Hospitalization Status: Inpatient Admission sp4 Provider: Carolina Mireles spLeroy [facility] sp4 Condition: Fair sp4 Problem: new sp4 Symptoms: have improved sp4 Bed/Room Type: Standard sp4 Room Assignment: 225(04/01/25 09:58) bd Diagnosis - Intractable vomiting, acute moderate to severe esophagitis sp4 - Acute hypokalemia secondary to GI losses sp4 Forms: - Medication Reconciliation Form sp4 - SBAR form sp4 - Leadership Thank You Letter sp4 Critical care time excluding procedures: 21:04 Critical care time: Bedside Care: 36 minutes, Consultation: 12 minutes, Family sp4 Intervention: 12 minutes. Total time: 60 minutes Signatures: Dispatcher [employer] Louise Carrillo Lacie, RN RN Lucia Kendall, RN RN kd3 Mackenzie Bond RN RN vc1 Rita Page, RN RN ha1 Lucinda, Lori Silver, RN RN mb9 Srikanth Woodson MD MD sp4 Corrections: (The following items were deleted from the chart) 03/31 23:35 23:35 BASIC METABOLIC PANEL+C.LAB.BRZ ordered. EDMS EDMS 23:35 23:35 CBC+H.LAB.BRZ ordered. EDMS EDMS 23:35 23:35 HEPATIC FUNCTION+C.LAB.BRZ ordered. EDMS EDMS 23:35 23:35 MAGNESIUM+C.LAB.BRZ ordered. EDMS EDMS 23:35 23:35 PROBNP+C.LAB.BRZ ordered. EDMS EDMS 23:35 23:35 PROTIME (+INR)+COAG.LAB.BRZ ordered. EDMS EDMS 23:35 23:35 Troponin High Sensitivity+C.LAB.BRZ ordered. EDMS EDMS 23:36 23:36 LIPASE+C.LAB.BRZ ordered. EDMS EDMS 23:36 23:36 Chest Abdomen Pelvis W Con+CT.RAD.BRZ ordered. EDMS EDMS 04/01 07:15 03/31 23:45 Allergies: Aspirin; [place] [id number] 04/01 07:15 03/31 23:45 Allergies: Codeine; [place] [id number] 04/01 07:15 03/31 23:45 Allergies: PENICILLINS; [place] [id number] 04/01 07:15 03/31 23:45 Home Meds: esomeprazole magnesium oral; [place] [id number] 04/01 07:15 03/31 23:45 Home Meds: alendronate oral; [place] [id number] 04/01 07:15 03/31 23:45 Home Meds: Oxybutynin Chloride Oral; [place] [id number] 04/01 07:15 03/31 23:45 Home Meds: Trazodone Oral; [place] [id number] 04/01 07:15 03/31 23:45 Home Meds: Lovastatin Oral; [place] [id number] 04/01 07:15 03/31 23:45 PMHx: Osteoporosis; [place] [id number] 04/01 07:15 03/31 23:45 PSHx: None; [place] [id number] 04/01 09:58 06:06 sp4 bd
--- NOTE | 2025-04-01 07:08 | RAD REPORT ---
ADDENDUM #1 EXAM: US Abdomen Limited, Right Upper Quadrant FACILITY: [facility] CLINICAL HISTORY: 89 years, Female; ABD PAIN TECHNIQUE: Real-time ultrasound of the right upper quadrant with image documentation. COMPARISON: CT chest abdomen pelvis 04/01/2025 12: 35 AM. FINDINGS: Liver: Unremarkable. No mass. No intrahepatic bile duct dilation. Gallbladder: The gallbladder fossa is empty. A portion of the adjacent fluid-filled stomach is part ially imaged on ultrasound. Common bile duct: Common bile duct measures 6 mm. No stones. No dilation. Pancreas: Unremarkable as visualized. Right kidney: Unremarkable. No stones. No solid mass. No hydronephrosis. IMPRESSION: No acute findings. There is post cholecystectomy. No biliary dilatation. Fluid-filled stomach is part ially imaged. Electronically signed by: Tone Cruz MD 04/01/2025 08:45 AM [employer] End of Addendum EXAM: US Abdomen Limited, Right Upper Quadrant FACILITY: [facility] CLINICAL HISTORY: 89 years, Female; ABD PAIN TECHNIQUE: Real-time ultrasound of the right upper quadrant with image documentation. COMPARISON: No relevant prior studies available. FINDINGS: Liver: Unremarkable. No mass. No intrahepatic bile duct dilation. Gallbladder: Gallbladder stones. Gallbladder wall thickening. Common bile duct: Common bile duct measures 6 mm. No stones. No dilation. Pancreas: Unremarkable as visualized. Right kidney: Unremarkable. No stones. No solid mass. No hydronephrosis. IMPRESSION: Cholelithiasis with gallbladder wall thickening. Findings may represent acute cholecystitis in the ap propriate clinical setting. Electronically signed by: Tabby Prakash MD 04/01/2025 01:48 AM LamahuiT RP H Due to temporary technical issues with the PACS/VUELOGIC reporting system, reports are being signed by the in-house radiologist without review as a courtesy to ensure prompt reporting the [facility] radiologist is fully responsible for the content of the report. Transcribed Date/Time: 04/01/2025 9:26 AM
[2025-04-01] MEDS ORDERED: SODIUM CHLORIDE 0.9% 10ML INJ IV PRN (07:09)
[2025-04-01] MEDS ORDERED: ONDANSETRON 4 MG/2 ML VIAL IV PRN (07:09)
[2025-04-01] MEDS: NA CHLORIDE 0.9% 1,000 ML IV SCH (08:00)
[2025-04-01 08:55] VITALS: BMI 18.1
[2025-04-01] MEDS: PANTOPRAZOLE 40 MG INJ IVP SCH (09:00)
--- NOTE | 2025-04-01 10:16 | P.HP ---
Certification for Inpatient Patient admitted to: Inpatient With expected LOS: >2 Midnights Patient will require the following post-hospital care: None Practitioner: I am a practitioner with admitting privileges, knowledge of patient current condition, hospital course, and medical plan of care. Services: Services provided to patient in accordance with Admission requirements found in Title 42 Section 412.3 of the Code of Federal Regulations <Brandan Haynes - Last Filed: 04/01/25 10:12> Patient History Date of Service: 04/01/25 History of Present Illness: 89-year-old female with history of hyperlipidemia presents emergency department chief complaint of nausea/vomiting, epigastric pain. Per family reports that she went to a around 2 days ago, they felt as if she got emotional at that time and began having vomiting. Since then she has been unable to keep much down by mouth with multiple episodes of vomiting today and some epigastric pain. Patient was evaluated in the emergency department her labs were significant for a white blood cell count of 16.[address] of the abdomen pelvis was performed which showed extensive esophageal wall thickening concerning for esophagitis. A discrete mass is not seen however consider direct visualization. Abdominal ultrasound was also performed which showed no acute findings, no biliary dilatation, status post cholecystectomy, fluid-filled stomach partially imaged. Patient started on twice daily PPI, will be admitted for further evaluation and management of nausea, vomiting, hypokalemia, possible esophagitis. - Past Medical/Surgical History Has patient received pneumonia vaccine in the past: Yes -: Esophageal stricture -: Hyperlipidemia -: cholecystectomy -: Appendectomy - Social History Smoking Status: Never smoker Alcohol use: No CD- Drugs: No Caffeine use: Yes Place of Residence: Home <Brandan Haynes - Last Filed: 04/01/25 10:12> Date of Service: 04/01/25 <Carolina Mireles - Last Filed: 04/01/25 15:03> Allergies aspirin Allergy (Verified 10/17/15 11:25) TONGUE SWELLING codeine Allergy (Verified 10/17/15 11:25) tongue swelling Penicillins Allergy (Verified 10/17/15 11:26) TONGUE SWELLING Home Medications: Alendronate Sodium 70 mg PO Q7D 01/08/15 Brimonidine Tartrate/Timolol [Combigan Eye Drops] 1 drop EACH EYE BID 01/08/15 Dorzolamide HCl/Timolol Maleat [Dorzolamide-Timolol Eye Drops] 1 drop EACH EYE BID 01/08/15 Esomeprazole Sodium 40 mg PO DAILY 01/08/15 Lovastatin [Mevacor*] 20 mg PO DAILY 01/08/15 Trazodone [Desyrel*] 50 mg PO BEDTIME 01/08/15 oxyBUTYnin chloride [Ditropan*] 10 mg PO BID 01/08/15 Netarsudil Mesylat/Latanoprost [Rocklatan 0.02%-0.005% Eye Drp] 1 drop OP BEDTIME 04/01/25 Review of Systems 10-point ROS is otherwise unremarkable Gastrointestinal: Nausea, Vomiting, Abdominal Pain <Brandan Haynes - Last Filed: 04/01/25 10:12> Physical Examination - Physical Exam General: Alert, In no apparent distress, Oriented x3 HEENT: Atraumatic, PERRLA, EOMI Neck: Supple, 2+ carotid pulse no bruit, No LAD Respiratory: Clear to auscultation bilaterally, Normal air movement Cardiovascular: Regular rate/rhythm, Normal S1 S2 Gastrointestinal: Normal bowel sounds, No tenderness Musculoskeletal: No tenderness Integumentary: No rashes Neurological: Normal speech, Normal strength at 5/5 x4 extr, Normal affect - Studies Laboratory Data (last 24 hrs) 03/31/25 03/31/25 03/31/25 23:48 23:48 23:48 WBC 16.20 H Hgb 11.8 L Hct 36.2 Plt Count 285 PT 13.8 H INR 1.23 Sodium 139 Potassium 2.7 L BUN 10 Creatinine 0.95 Glucose 145 H Magnesium 2.3 Total Bilirubin 0.5 AST 13 L ALT 15 Alkaline Phosphatase 71 Lipase 26 <Brandan Haynes - Last Filed: 04/01/25 10:12> - Studies Laboratory Data (last 24 hrs) 03/31/25 03/31/25 03/31/25 23:48 23:48 23:48 WBC 16.20 H Hgb 11.8 L Hct 36.2 Plt Count 285 PT 13.8 H INR 1.23 Sodium 139 Potassium 2.7 L BUN 10 Creatinine 0.95 Glucose 145 H Magnesium 2.3 Total Bilirubin 0.5 AST 13 L ALT 15 Alkaline Phosphatase 71 Lipase 26 <Chi,Azfar - Last Filed: 04/01/25 15:03> Assessment and Plan - Plan Assessment: Nausea/vomiting/epigastric pain Esophagitis Leukocytosis Hypokalemia Hyperlipidemia Plan: Nausea/vomiting/epigastric pain Esophagitis Leukocytosis Reports an EGD around 3 years ago with possible esophageal stricture Nausea/vomiting began 2 days ago and has been persistent with intolerance of oral food/fluids CT with concern for esophagitis Continue twice daily PPI GI consultation Hypokalemia Potassium protocol in place Hyperlipidemia Continue home medications when confirmed and tolerating p.o. DVT PPX: SCD Code status: Full Discharge Plan: Home Plan to discharge in: 48 Hours - Advance Directives Does patient have a Living Will: No Does patient have a Durable POA for Healthcare: No - Code Status/Comfort Care Code Status Assessed: Yes (Full code) Critical Care: No Time Spent Managing Pts Care (In Minutes): 70 <Brandan Haynes - Last Filed: 04/01/25 10:12> Physician Review: Patient Assessed, Agree with Above Assessment and Plan <Carolina Mireles - Last Filed: 04/01/25 15:03>
[2025-04-01] MEDS: CIPROFLOXACIN 400mg IV 400 MG/200 ML BAG IV SCH (11:49)
[2025-04-01] MEDS: Ringers Lactate 1,000 ML IV ONE (12:50)
[2025-04-01] MEDS ORDERED: LIDOCAINE 1% MPF 5 ML VIAL ONE (13:10)
[2025-04-01] MEDS: METRONIDAZOLE 500mg IVPB 500 MG/100 ML BAG IV SCH (14:41)
--- NOTE | 2025-04-01 18:43 | CON ---
Date of Consultation: 04/01/2025 Reason For Consultation: Midepigastric pain, nausea, vomiting with possible coffee-grounds emesis an d abnormal CT scan. History Of Present Illness: The patient is an 89-year-old female from [facility], who presen yifan with midepigastric pain, nausea, vomiting, and possible coffee-grounds emesis. The patient state s she was in her usual state of health approximately a month ago started having some mild midepigastr ic pain, so finally became 10/10 before admission, associated with nausea, vomiting, and she said she seen some dark black emesis. Of note, her hemoglobin is 11.8, somewhat low with MCV of [address] scan revealed esophagitis and some gastritis it appears. The patient denies any excessive NSA IDs or aspirin or other inflammatory agents. She is with daughter at bedside, is translating for her . Past Medical History: Significant for gastroesophageal reflux disease, esophageal stricture, hyperli pidemia, osteoporosis, glaucoma, laparoscopic cholecystectomy, and appendectomy. Medications: At home include alendronate, Combigan eye drops and then dorzolamide timolol eye drops, Nexium 40 mg p.o. daily, lovastatin 30 mg p.o. daily, trazodone 50 mg p.o. daily. Allergies: TO ASPIRIN, CODEINE, AND PENICILLIN. Social History: She is a from [facility]. She has 4 children. Her second child who is a mckay grant is with her. She had 2 daughters, 2 sons, old girl, 2 olders were girls and 2 youngers were boys. No tobacco. No alcohol. As stated above, she is from [facility]. Family History: Father of myocardial infarction. Mother of myocardial infarction. Has an identical twin sister has hypertension and coronary artery disease. Daughter says that her twin juan grant has become obese whereas this patient stayed thin. She also has a daughter with colon cancer. C annot recall her prior colonoscopy and states that she does not want to have one, has been told she c an do without. Review of Systems: The patient had midepigastric pain, nausea, vomiting. Positive coffee-grounds emesis that was black, but she says she was eating some Oreo before she vomited and she is not sure if it is blood or other . She has some mild shortness of breath, but no chest pain, no seizures, no muscle aches, joint ache s, backaches, hematochezia, melena, hemoptysis, epistaxis, hematuria, dysuria, polydipsia. No depres yolanda, anxiety, except when her 25 years ago she has been mourning his ever since t he family reports. Physical Examination: Vital Signs: The patient is 5 foot 1 inch, 96 pounds, BMI of 18.1 kg/m2, temperature of 97 degrees F ahrenheit, pulse 85, respirations 16, blood pressure 137/67, O2 saturation 96% to 100% on room air. General: She is an elderly female, lying in bed, in no acute distress, in good spirits. Somewhat john everett. No coughing. She did not look septic or febrile. HEENT: Normocephalic, atraumatic, anicteric. Pupils equal, round, and reactive to light. Extraocul ar movements intact. Oropharynx clear. Neck: Supple. No masses. Lungs: Respirations, good air movement. Clear. Cardiac: Regular rate and rhythm. No gallops or rubs. Good pulses. Abdominal: Soft, nondistended. Mild midepigastric tenderness. No peritoneal Singh sign. No rebou nd. No guarding currently. Extremities: No clubbing, cyanosis, or edema. 2+ pulses. Neuro: Alert and oriented x3. Grossly nonfocal. 5/5 motor strength. Sensation intact to light cortney ch. Laboratory Data: The patient has a white count of 16.2, hemoglobin of 11.8, hematocrit 36, MCV of 89 , platelet count of 285, polys 75%, lymphocytes 17%, monocytes 7%, eosinophils 0.2%. PT of 13.8, INR of 1.23. The patient has a sodium of 139, potassium 2.7, chloride 103, bicarb 30, BUN of 10, creati nine of 0.95, glucose 145, calcium 8.9, magnesium 2.3, total bilirubin 0.5, regular bilirubin less th an 0.2, indirect bilirubin 0.3, AST of 13, ALT of 15, alkaline phosphatase 71. Troponin I of 6.2, wh ich is negative. B-type natriuretic peptide of 274. Total protein 6.4, albumin 2.8, lipase 26. Imaging: CT chest, abdomen, and pelvis revealed extensive esophageal wall thickening concerning for esophagitis is not seen, colon diverticulosis without diverticulitis, mild enhancement thi ckening of the bladder wall which may be secondary to cystitis. Some mild biliary duct dilatation, p robably secondary to post cholecystectomy changes. Impression: 1. Midepigastric pain 10/10 yesterday, now down to 9. The patient states she has been having this pa in off and on over the past month, though mild for most of the month, but severe yesterday and before admission. We will need to investigate with EGD. 2. Recurrent nausea, vomiting with possible coffee-grounds emesis. 3. Abnormal CT scan revealing severe esophagitis, diverticulosis, constipation. 4. Esophagitis as noted on CT. 5. Anemia, hemoglobin 11.8 with MCV of 89. We will need to investigate with EGD. 6. History of gastric reflux disease, esophageal stricture, hyperlipidemia, osteoporosis, glaucoma, l aparoscopic cholecystectomy, and appendectomy. Recommendations: 1. Continue p.r.n. pain medicines, antiemetics. Check serial H and Hs and transfuse p.r.n. 2. PPI therapy. 3. Continue IV fluids. 4. Keep the patient n.p.o. 5. EGD urgently. ALEX/BHARGAVI Voice ID: [id number] Report ID: [id number]
[2025-04-01] MEDS: KCL 20 MEQ/100 mL IVPB 20 MEQ/100 ML BAG IV SCH (21:30)
[2025-04-02 05:56] LABS: Absolute Lymphocytes (CBC) 2.7 K/uL (0.7-4.9); Hematocrit 30.1 % (36.0-45.0); Hemoglobin 10.3 g/dL (12.0-15.0); MCH 30.6 pg (27.0-35.0); MCHC 34.2 g/dL (32.0-36.0); MCV 89.5 fL (80-100); MPV 7.5 fL (7.6-11.3); Nucleated RBC Absolute Count 0.0 (0-0); Nucleated Red Blood Cells % 0.0 % (0-0); RBC Red Blood Cell Count 3.37 M/uL (3.86-4.86); White Blood Count 9.90 thou/uL (4.3-10.9)
[2025-04-02 06:14] LABS: ALT/SGPT 148.0 U/L (13-56); AST/SGOT 125.0 U/L (15-37); Albumin 2.1 g/dL (3.4-5.0); Albumin/Globulin Ratio 0.7 (1.1-1.8); Alkaline Phosphatase 83.0 U/L (45-117); Anion Gap 8.4 mEq/L (5.0-15.0); BUN Blood Urea Nitrogen 5.0 mg/dL (7-18); Globulin 3.0 g/dL (2.3-3.5); Glucose Level 94.0 mg/dL (74-106); Magnesium 1.7 mg/dL (1.6-2.4); Potassium 4.4 mEq/L (3.5-5.1)
[2025-04-02] MEDS: ENOXAPARIN 40 MG/0.4 ML SQ SCH (08:16)
[2025-04-02] MEDS: MAGNESIUM SULFATE 1 gm IVPB 1 GM/100 ML BAG IV ONE (11:06)
--- NOTE | 2025-04-02 14:25 | P.PN ---
Subjective Date of Service: 04/02/25 Chief Complaint: STEPHANIE pain, N/V, diarrhea Subjective: Improving (Feels much better today with much less pain, no N/V/D. She is tolerating CL diet.) Review of Systems 10-point ROS is otherwise unremarkable General: Weakness (Improved. ) Gastrointestinal: Abdominal Pain (Improved. ) Physical Examination - Vital Signs Temperature: 98.4 F Blood Pressure: 93/46 Pulse: 72 Respirations: 16 Pulse Ox (%): 93 - Physical Exam General: Alert, In no apparent distress, Oriented x3, Cooperative HEENT: Atraumatic, Normocephalic, PERRLA, EOMI Neck: Supple Respiratory: Normal air movement Gastrointestinal: No rebound, No guarding, Tenderness (Mild. Improved. ) Neurological: Normal speech, Normal strength at 5/5 x4 extr Assessment And Plan - Current Problems (Diagnosis) (1) Epigastric abdominal pain Current Visit: Yes Status: Acute Comment: Improved. (2) Nausea & vomiting Current Visit: Yes Status: Acute (3) Diarrhea Current Visit: Yes Status: Acute (4) Abnormal CT of the abdomen Current Visit: Yes Status: Acute (5) Esophagitis Current Visit: Yes Status: Acute (6) Gastritis Current Visit: Yes Status: Acute - Plan REC: 1) await pathology 2) continue PPI bid 3) add Carafate elixir 1 g po qac/qhs 4) advance diet slowly from CL to FL to GI soft 5) await stool studies & blood cultures 6) GI clinic f/u Physician Review: Patient Assessed, Agree with Above Assessment and Plan
[2025-04-02] MEDS: NA CHLORIDE 0.9% 500 ML IV ONE (14:59)
--- NOTE | 2025-04-02 15:05 | P.PN ---
Subjective Date of Service: 04/02/25 Chief Complaint: STEPHANIE pain, N/V, diarrhea Subjective: No chest pain or shortness of breath. No nausea or vomiting. No abdominal pain. No obvious bleeding. Looks comfortable in the bed. Tolerating liquid diet well so far. Objective: General appearance: Alert and comfortable CVS: Normal S1 and S2 Lungs: Clear to auscultation bilaterally Abdomen: Soft, bowel sounds present, no tenderness Extremities: No lower extremity edema Physical Examination - Vital Signs Temperature: 98.4 F Blood Pressure: 93/46 Pulse: 72 Respirations: 16 Pulse Ox (%): 93 Assessment And Plan - Plan Nausea/vomiting/epigastric pain Esophagitis Leukocytosis Hypokalemia Hyperlipidemia Bladder thickening on CT scan, will check urinalysis. Transaminitis: Monitor closely. Plan: Nausea/vomiting/epigastric pain Esophagitis Leukocytosis Had an EGD which showed esophagitis CT with concern for esophagitis Continue twice daily PPI GI consultation on board, appreciate recommendations, slowly advance diet as per GI, continue antibiotic as per GI. Hypokalemia Replaced Hyperlipidemia Continue home medications Plan discussed with the patient and family at bedside, discussed with nursing staff and case management team, discharge plan will depend on clinical progress Physician Review: Patient Assessed, Agree with Above Assessment and Plan
[2025-04-02] MEDS: SUCRALFATE 1GM/10ML UCUP FT SCH (16:57)
[2025-04-02 20:03] LABS: Sqamous Epithelial <5 /HPF (None Seen); Urine Micro Reflex YN NO BILL MICROSCOPIC
[2025-04-02 21:59] VITALS: O2SAT 96
[2025-04-03 07:49] LABS: Absolute Lymphocytes (CBC) 3.4 K/uL (0.7-4.9); Hematocrit 34.0 % (36.0-45.0); Hemoglobin 11.6 g/dL (12.0-15.0); MCH 30.6 pg (27.0-35.0); MCHC 34.1 g/dL (32.0-36.0); MCV 89.7 fL (80-100); MPV 7.7 fL (7.6-11.3); Nucleated RBC Absolute Count 0.0 (0-0); Nucleated Red Blood Cells % 0.0 % (0-0); RBC Red Blood Cell Count 3.79 M/uL (3.86-4.86); White Blood Count 9.60 thou/uL (4.3-10.9)
[2025-04-03 08:09] LABS: ALT/SGPT 106 U/L (13-56); AST/SGOT 46 U/L (15-37); Albumin 2.4 g/dL (3.4-5.0); Albumin/Globulin Ratio 0.7 (1.1-1.8); Alkaline Phosphatase 86 U/L (45-117); Anion Gap 9.7 mEq/L (5.0-15.0); Globulin 3.5 g/dL (2.3-3.5); Glucose Level 102 mg/dL (74-106); Magnesium 2.2 mg/dL (1.6-2.4); Potassium 3.7 mEq/L (3.5-5.1)
[2025-04-03 08:11] LABS: BUN Blood Urea Nitrogen < 3 mg/dL (7-18)
[2025-04-03 12:10] VITALS: BP 154/70; TEMP 98.3
--- NOTE | 2025-04-03 13:05 | P.DS ---
Admission Date: 04/01/25 Discharge Date: 04/03/25 Disposition: ROUTINE DISCHARGE Discharge Condition: GOOD Reason for Admission: STEPHANIE pain, N/V, diarrhea Hospital Course: Nausea/vomiting/epigastric pain: Improved Esophagitis, status post endoscopy, DC home on PPI twice daily and Carafate as per gastroenterology. Leukocytosis: Probably reactive, resolved Hypokalemia: Replaced Hyperlipidemia: Continue home medications Bladder thickening on CT scan, urinalysis neg, f/u with urology. Transaminitis: Improving, f/u with PCP/ GI Hospital course: 89-year-old patient admitted with nausea, vomiting and es ophagitis, she was started on PPI, she was also given antibiotics as well, gastroenterology was consulted, she had an endoscopy which showed esophagitis, gastroenterology recommended to slowly advance her diet, when I see the patient today she is tolerating diet without any acute problems and she feels ready to go home, otherwise no other acute issues going on so I am planning to discharge her to go home and close follow-up with PCP and GI. Gastroenterology recommended twice daily PPI and also 4 times daily Carafate, prescriptions were provided for the patient at the time of discharge, she will need close follow-up with PCP and gastroenterology as an outpatient. Subjective: No chest pain or shortness of breath. No nausea or vomiting. No abdominal pain. No obvious bleeding. Looks comfortable in the bed. Objective: General appearance: Alert and comfortable CVS: Normal S1 and S2 Lungs: Clear to auscultation bilaterally Abdomen: Soft, bowel sounds present, no tenderness Extremities: No lower extremity edema Plan discussed with the patient and family at bedside, discussed with nursing staff and case management team. Vital Signs/Physical Exam: Temp Pulse Resp BP Pulse Ox 98.3 F 79 16 154/70 H 96 04/03/25 12:00 04/03/25 12:00 04/03/25 12:00 04/03/25 12:00 04/03/25 12:00 Laboratory Data at Discharge: WBC 9.60 thou/uL (4.3-10.9) 04/03/25 07:14 Hgb 11.6 g/dL (12.0-15.0) L D 04/03/25 07:14 Hct 34.0 % (36.0-45.0) L 04/03/25 07:14 Plt Count 275 thou/uL (152-406) 04/03/25 07:14 PT 13.8 SECONDS (10-13.0) H 03/31/25 23:48 INR 1.23 03/31/25 23:48 Sodium 144 mEq/L (136-145) 04/03/25 07:14 Potassium 3.7 mEq/L (3.5-5.1) D 04/03/25 07:14 BUN < 3 mg/dL (7-18) L 04/03/25 07:14 Creatinine 0.55 mg/dL (0.55-1.02) 04/03/25 07:14 Glucose 102 mg/dL (74-106) 04/03/25 07:14 Magnesium 2.2 mg/dL (1.6-2.4) 04/03/25 07:14 Total Bilirubin 0.5 mg/dL (0.2-1.0) 04/03/25 07:14 AST 46 U/L (15-37) H 04/03/25 07:14 ALT 106 U/L (13-56) H 04/03/25 07:14 Alkaline Phosphatase 86 U/L (45-117) 04/03/25 07:14 Lipase 26 U/L (13-75) 03/31/25 23:48 Home Medications: Alendronate Sodium 70 mg PO Q7D 01/08/15 Brimonidine Tartrate/Timolol [Combigan 0.2%-0.5% Eye Drops] 1 drop EACH EYE BID 01/08/15 Dorzolamide HCl/Timolol Maleat [Dorzolamide-Timolol Eye Drops] 1 drop EACH EYE BID 01/08/15 Lovastatin [Mevacor*] 20 mg PO DAILY 01/08/15 Trazodone [Desyrel*] 50 mg PO BEDTIME 01/08/15 oxyBUTYnin chloride [Ditropan*] 10 mg PO BID 01/08/15 Netarsudil Mesylat/Latanoprost [Rocklatan 0.02%-0.005% Eye Drp] 1 drop OP BEDTIME 04/01/25 Pantoprazole [Protonix Tab] 40 mg PO BID #60 tab 04/03/25 Sucralfate [Carafate -Tab] 1 gm PO ACHS #120 tab 04/03/25 New Medications: Sucralfate [Carafate -Tab] 1 gm PO ACHS #120 tab Pantoprazole [Protonix Tab] 40 mg PO BID #60 tab Diet: Regular Followup: Vicki Damon, [employer] [Primary Care Provider] - 2-3 Days (Follow-up with PCP in 3 to 5 days with CBC and CMP, bladder thickening on CT scan will need follow-up with urology, PCP to set up appointment.) Time spent managing pt's care (in minutes): 35
== END 2025-04-03 14:55 | disposition home or self-care (01) | DRG 370 ==
LOC: ER 23:24 → ERHOLD 04-01 07:08 → 2ND 04-01 10:09
PROVIDERS: ADMIT Family Medicine; ATTEND Hospitalist
PROC: 0DB78ZX Excision of Stomach, Pylorus, Via Natural or Artificial Opening Endoscopic, Diagnostic (ICD-10-PCS; 2025-04-01)
PROC: 0DB68ZX Excision of Stomach, Via Natural or Artificial Opening Endoscopic, Diagnostic (ICD-10-PCS; principal; 2025-04-01 13:00)
DX: K21.01 Gastro-esophageal reflux disease with esophagitis, with bleeding (principal); E87.6 Hypokalemia; K29.70 Gastritis, unspecified, without bleeding; D64.9 Anemia, unspecified; E78.5 Hyperlipidemia, unspecified; K59.00 Constipation, unspecified; K44.9 Diaphragmatic hernia without obstruction or gangrene; K57.30 Diverticulosis of large intestine without perforation or abscess without bleeding; R74.01 Elevation of levels of liver transaminase levels; Z90.49 Acquired absence of other specified parts of digestive tract; Z88.6 Allergy status to analgesic agent; Z88.0 Allergy status to penicillin; Z88.5 Allergy status to narcotic agent; Z79.899 Other long term (current) drug therapy
CPT/HCPCS: 36415; 71260; 74177; 76705; 80048; 80053; 80076; 81001; 83690; 83735; 83880; 84132; 84484; 85025; 85610; 87040; 88305; 88312; 93005; 96365; 96366; 96375; 99285; J0696; J0744; J1650; J2003; J2270; J2405; J2470; J2704; J2765; J3475; J3480; J7030; J7040; J7120; Q9967